=== PATIENT | female | born 1990 | race Two or more races ===

== ENCOUNTER 2018-02-01 12:54 | Outpatient (CLI) | payer OTHER | END 2018-02-01 13:04 | disposition home or self-care (01) | LOC: RAD 12:54 | DX: M54.2 Cervicalgia (principal); M54.6 Pain in thoracic spine; M54.5 Low back pain ==

== ENCOUNTER → 2019-04-06 | Outpatient (CLI) | payer OTHER | END | disposition home or self-care (01) | LOC: PRENATAL 11:00 | DX: O35.3XX0 Maternal care for (suspected) damage to fetus from viral disease in mother, not applicable or unspecified (principal) ==

== ENCOUNTER 2019-07-06 11:19 | Inpatient (IN) | payer OTHER ==
[~2019-07-06] VITALS: Ht 167.6 cm; Wt 65.8 kg
[2019-08-03] MEDS ORDERED: PRENATAL TABLE1 EAC1 PO (04:23)
[2019-08-03] MEDS ORDERED: VALTREX1000 MG PO (04:23)
== END 2019-08-05 14:43 | disposition home or self-care (01) | DRG 807 ==
LOC: OB/GYN 08-03 02:46 → LDR 08-03 02:46 → OB/GYN 08-03 03:57
PROVIDERS: ADMIT Specialist
PROC: 10E0XZZ Delivery of Products of Conception, External Approach (ICD-10-PCS; principal; 2019-08-03)
PROC: 4A1HXFZ Monitoring of Products of Conception, Cardiac Rhythm, External Approach (ICD-10-PCS; 2019-08-03)
PROC: 3E033VJ Introduction of Other Hormone into Peripheral Vein, Percutaneous Approach (ICD-10-PCS; 2019-08-03)
DX: O70.1 Second degree perineal laceration during delivery (principal); Z37.0 Single live birth; Z3A.39 39 weeks gestation of pregnancy

== ENCOUNTER 2021-11-06 15:24 | Outpatient (CLI) | payer OTHER ==
[~2021-11-06 15:24] MED LIST: PRENATAL TABLE1 EAC1 PO; VALTREX1000 MG PO
== END 2021-11-06 16:42 | disposition home or self-care (01) ==
LOC: PRENATAL 15:24
PROVIDERS: ATTEND Obstetrics & Gynecology Maternal & Fetal Medicine
DX: O36.80X0 Pregnancy with inconclusive fetal viability, not applicable or unspecified (principal); Z36.1 Encounter for antenatal screening for raised alphafetoprotein level; Z3A.11 11 weeks gestation of pregnancy

== ENCOUNTER 2022-01-08 11:02 | Outpatient (CLI) | payer OTHER | END 2022-01-08 12:19 | disposition home or self-care (01) | LOC: PRENATAL 11:02 | PROVIDERS: ATTEND Obstetrics & Gynecology Maternal & Fetal Medicine | DX: O35.0XX0 Maternal care for (suspected) central nervous system malformation in fetus, not applicable or unspecified (principal); O35.3XX0 Maternal care for (suspected) damage to fetus from viral disease in mother, not applicable or unspecified; Z3A.20 20 weeks gestation of pregnancy ==

== ENCOUNTER 2022-05-21 03:47 | Inpatient (IN) | payer OTHER ==
[~2022-05-21] VITALS: Ht 167.6 cm; Wt 69.9 kg
== END 2022-05-23 13:42 | disposition home or self-care (01) | DRG 807 ==
LOC: LDR 03:47 → OB/GYN 07:53
PROVIDERS: ADMIT Specialist; ATTEND Specialist
PROC: 10E0XZZ Delivery of Products of Conception, External Approach (ICD-10-PCS; principal; 2022-05-21)
PROC: 0W8NXZZ Division of Female Perineum, External Approach (ICD-10-PCS; 2022-05-21)
PROC: 4A1HXCZ Monitoring of Products of Conception, Cardiac Rate, External Approach (ICD-10-PCS; 2022-05-21)
DX: O80 Encounter for full-term uncomplicated delivery (principal); Z37.0 Single live birth; Z3A.39 39 weeks gestation of pregnancy; Z20.822 Contact with and (suspected) exposure to COVID-19

== ENCOUNTER 2022-10-02 13:49 | Outpatient (CLI) | payer OTHER | END 2022-10-02 14:06 | disposition home or self-care (01) | LOC: SONOGRAMA 13:49 | DX: E04.2 Nontoxic multinodular goiter (principal); E06.3 Autoimmune thyroiditis ==